=== PATIENT | female | born 1965 | race Caucasian/White ===

== ENCOUNTER → 2018-12-22 | Outpatient (CLI) | payer BC ==
[~2018-12-22] MED LIST: ESTROGENS PO; FLEXERIL10 MG PO; NO HOME MEDICATIONS; NORCO 325 MG-51 TAB PO; PERCOCET 325 MG1 TA2 PO; PREMARIN0.45 MG PO; TYLENOL 325MG325 MG PO
== END ==
LOC: MC.RAD 08:56
DX: Z12.31 Encounter for screening mammogram for malignant neoplasm of breast (principal)

== ENCOUNTER 2019-01-21 06:59 | Day surgery (SDC) | payer BC ==
[~2019-01-21] VITALS: Ht 175.3 cm; Wt 95.9 kg
--- NOTE | 2019-01-21 07:15 | NUR ---
Patient ambulated to bay 6 without difficulty. Alert and oriented, vital signs WNL. Heart sounds regular, lung sounds clear, bowel sounds active. IV fluids infusing per MD orders. at bedside. Call alba within reach, will continue to monitor.
[2019-01-21 07:20] VITALS: BP 116/74; PULSE 65; TEMP 97.9
[2019-01-21] MEDS ORDERED: COZAAR100 MG PO (07:34)
[2019-01-21 09:20] VITALS: BP 111/62; PULSE 63; TEMP 97.6
--- NOTE | 2019-01-21 09:20 | NUR ---
Pt to GI bay 6 via cart from [facility]. Pt drowsy, but awakens easily. Pt denies pain or nausea. Pt ambulates to recliner with stand by assistance. Warm blanket provided. Juice and applesauce given per request. in room. Will continue to monitor. Call light within reach.
[2019-01-21 09:35] VITALS: BP 104/60; PULSE 69
--- NOTE | 2019-01-21 09:35 | NUR ---
Pt continues to rest. Denies pain or nausea. Tolerating food and PO fluids without difficulties. IV site discontinued with all parts intact. Pt up to dress. Call light within reach.
--- NOTE | 2019-01-21 09:45 | NUR ---
Discharge instructions reviewed. Pt voices understanding.
--- NOTE | 2019-01-21 10:00 | NUR ---
Pt escorted to private car via wheel chair. Pt accompanied home by her .
== END 2019-01-21 10:00 | disposition home or self-care (01) ==
LOC: SDCO 06:59
DX: Z12.11 Encounter for screening for malignant neoplasm of colon (principal); K57.30 Diverticulosis of large intestine without perforation or abscess without bleeding; Z86.010 Personal history of colon polyps; I10 Essential (primary) hypertension
CPT/HCPCS: J2250; J3010

== ENCOUNTER → 2021-06-07 | Outpatient (CLI) | payer BC ==
[~2021-06-07] MED LIST changes: +COZAAR100 MG PO
== END ==
LOC: MC.RAD 09:39
DX: Z12.31 Encounter for screening mammogram for malignant neoplasm of breast (principal); Z90.13 Acquired absence of bilateral breasts and nipples

== ENCOUNTER → 2022-12-17 | Outpatient (CLI) | payer BC | LOC: MC.RAD 10-09 14:15 | DX: Z12.31 Encounter for screening mammogram for malignant neoplasm of breast (principal) ==